=== PATIENT | female | born 1945 | race American Indian/Alaskan Native ===

== ENCOUNTER → 2017-05-20 | Outpatient (CLI) | payer OTHER, MEDICARE ==
[~2017-05-20] MED LIST: AMIT10TA PO; ASPI-621 PO; CALC-60 PO; CEFD300C37 PO; INSU100V13 SQ; KETO10TA PO; LOPE2CAP PO; PYRI50TA9 PO; TRAM-47 PO
== END | disposition home or self-care (01) ==
LOC: CVU 09:22
PROVIDERS: ATTEND Nurse Practitioner
DX: I65.23 Occlusion and stenosis of bilateral carotid arteries (principal); I10 Essential (primary) hypertension; E11.9 Type 2 diabetes mellitus without complications
CPT/HCPCS: 93880